=== PATIENT | female | born 1980 | race Caucasian/White ===

== ENCOUNTER 2018-03-12 11:57 | Emergency (ER) | payer MEDICAID, OTHER ==
[2018-03-12 12:28] VITALS: BP 127/89
--- NOTE | 2018-03-12 12:38 | UC ---
UC General HPI - HPI Summary HPI Summary: 10 day hx worsening sinus congestion and pain with bloody purulent drainage. head congestion causing ear pain and post nasal drip causing cough. failing otc tx. subjective fever. - History of Current Complaint Chief Complaint: UCRespiratory Stated Complaint: SINUS COMPLAINT/COUGH Time Seen by Provider: 03/12/18 12:18 Hx Obtained From: Patient Hx Last Menstrual Period: 03/07/18 Onset/Duration: Gradual Onset Timing: Constant Pain Intensity: 0 Associated Signs & Symptoms: Positive: Cough, Fever. Negative: Chest Pain, SOB - Allergy/Home Medications Allergies/Adverse Reactions: Allergies Allergy/AdvReac Type Severity Reaction Status Date / Time diphenhydramine Allergy Severe joint Verified 03/12/18 12:14 [From Benadryl] pain, swelling , difficulty breathing sulfamethoxazole Allergy Unknown Joint Pain Verified 03/12/18 12:14 [From Bactrim] trimethoprim [From Bactrim] Allergy Unknown Joint Pain Verified 03/12/18 12:14 Home Medications: Home Medications Acetaminophen TAB* [Tylenol TAB*] 650 mg PO Q4H PRN 03/12/18 [History Confirmed 03/12/18] Metoprolol Tartrate TAB* [Lopressor TAB*] 50 mg PO BID 03/12/18 [History Confirmed 03/12/18] guaiFENesin ER TAB [Mucinex*] 1,200 mg PO BID PRN 03/12/18 [History Confirmed ] PMH/Surg Hx/FS Hx/Imm Hx Cardiovascular History: Hypertension - Surgical History Surgical History: Yes Surgery Procedure, Year, and Place: Back surgery 2 years ago. Tubal - 2000 - Family History Known Family History: Positive: Non-Contributory - Social History Occupation: Employed Full-time Alcohol Use: Weekly Substance Use Type: None Smoking Status (MU): Current Some Day Smoker Type: Cigarettes Amount Used/How Often: ONE TWICE A MONTH - Immunization History Vaccination Up to Date: Yes Review of Systems All Other Systems Reviewed And Are Negative: Yes Constitutional: Positive: Fever, Chills Skin: Positive: Negative Eyes: Positive: Negative ENT: Positive: Sore Throat, Ear Ache, Nasal Discharge, Sinus Congestion, Sinus Pain/Tenderness Respiratory: Positive: Cough Cardiovascular: Positive: Negative Gastrointestinal: Positive: Negative Genitourinary: Positive: Negative Motor: Positive: Negative Neurovascular: Positive: Negative Musculoskeletal: Positive: Negative Neurological: Positive: Negative Psychological: Positive: Negative Physical Exam Triage Information Reviewed: Yes Appearance: Well-Appearing Vital Signs: Initial Vital Signs Temp 97.9 F 03/12/18 12:17 Pulse 72 03/12/18 12:17 Resp 17 03/12/18 12:17 BP 127/89 03/12/18 12:17 Pulse Ox 98 03/12/18 12:17 Vital Signs Reviewed: Yes Eyes: Positive: Conjunctiva Clear ENT: Positive: Pharynx normal, Nasal congestion, TMs normal, Sinus tenderness. Negative: Nasal drainage Neck: Positive: Supple, Nontender, No Lymphadenopathy Respiratory: Positive: Lungs clear, Normal breath sounds, No respiratory distress, Other: - NPC Cardiovascular: Positive: RRR, No Murmur Abdomen Description: Positive: Nontender, No Organomegaly, Soft Bowel Sounds: Positive: Present Musculoskeletal: Positive: ROM Intact Neurological: Positive: Alert Psychological: Positive: Age Appropriate Behavior Skin Exam: Normal Course/Dx - Diagnoses Provider Diagnosis: Sinusitis Discharge - Sign-Out/Discharge Documenting (check all that apply): Patient Departure All imaging exams completed and their final reports reviewed: No Studies - Discharge Plan Condition: Stable Disposition: HOME Prescriptions: Amoxicillin/Clavulanate TAB* [Augmentin TAB 875*] 875 mg PO BID 10 Days #20 tab Patient Education Materials: Sinusitis (ED) Forms: *Work Release Referrals: Dionne Galo NP [Primary Care Provider] - 7 Days - Billing Disposition and Condition Condition: STABLE Disposition: Home - Attestation Statements Provider Attestation: I was available for consult. This patient was seen by the CHARISSA. The patient was not presented to, seen by, or examined by me. -Wilda
== END 2018-03-12 12:57 | disposition home or self-care (01) ==
LOC: UCCORT 11:57
DX: J32.9 Chronic sinusitis, unspecified (principal); Z88.1 Allergy status to other antibiotic agents; Z88.8 Allergy status to other drugs, medicaments and biological substances; I10 Essential (primary) hypertension; F17.210 Nicotine dependence, cigarettes, uncomplicated
CPT/HCPCS: 99202; G0463

== ENCOUNTER 2018-05-08 14:45 | Emergency (ER) | payer OTHER ==
[2018-05-08 15:26] VITALS: BP 141/89
--- NOTE | 2018-05-08 15:29 | UC ---
Respiratory Complaint HPI - HPI Summary HPI Summary: 4 days of cough, sore throat, ear pain. flu shot: - History of Current Complaint Chief Complaint: UCRespiratory Stated Complaint: UPPER RESPIRATORY Time Seen by Provider: 05/08/18 15:28 Hx Obtained From: Patient Hx Last Menstrual Period: 04/22/18 Pain Intensity: 0 Pain Scale Used: 0-10 Numeric Character: Cough: Productive Aggravating Factors: Nothing Alleviating Factors: Nothing Associated Signs And Symptoms: Negative: Dyspnea, Fever, Chills - Allergies/Home Medications Allergies/Adverse Reactions: Allergies Allergy/AdvReac Type Severity Reaction Status Date / Time diphenhydramine Allergy Severe joint Verified 05/08/18 15:17 [From Benadryl] pain, swelling , difficulty breathing sulfamethoxazole Allergy Unknown Joint Pain Verified 05/08/18 15:17 [From Bactrim] trimethoprim [From Bactrim] Allergy Unknown Joint Pain Verified 05/08/18 15:17 PMH/Surg Hx/FS Hx/Imm Hx Previously Healthy: Yes - Surgical History Surgical History: Yes Surgery Procedure, Year, and Place: Back surgery 2 years ago. Tubal - 2000 - Family History Known Family History: Positive: Non-Contributory - Social History Alcohol Use: Weekly Substance Use Type: None Smoking Status (MU): Current Some Day Smoker Type: Cigarettes Amount Used/How Often: ONE TWICE A MONTH - Immunization History Vaccination Up to Date: Yes Review of Systems All Other Systems Reviewed And Are Negative: Yes Constitutional: Positive: Fever, Chills, Fatigue Skin: Negative: Rash ENT: Positive: Sinus Congestion, Other - loss of voice. Negative: Sore Throat, Ear Ache Respiratory: Positive: Cough Cardiovascular: Positive: Negative Gastrointestinal: Negative: Vomiting, Diarrhea, Nausea Neurological: Negative: Headache, Weakness Physical Exam Triage Information Reviewed: Yes Appearance: Well-Appearing Vital Signs: Initial Vital Signs Temp 98.1 F 05/08/18 15:19 Pulse 71 05/08/18 15:19 Resp 19 05/08/18 15:19 BP 141/89 05/08/18 15:19 Pulse Ox 100 05/08/18 15:19 Vital Signs Reviewed: Yes Eyes: Positive: Conjunctiva Clear ENT: Positive: Pharynx normal, TMs normal, Other - loss of voice Neck: Positive: Supple, No Lymphadenopathy Respiratory Exam: Normal Cardiovascular Exam: Normal Neurological: Positive: Alert Skin: Negative: Rashes UC Diagnostic Evaluation - Laboratory O2 Sat by Pulse Oximetry: 100 Respiratory Course/Dx - Course Course Of Treatment: 4 day hx of cough, post nasal drip and laryngitis. exam remarkable for laryngitis but otherwise unremarkable, good lungs. vitals good. trial of albuterol to help w/ dry cough and opening up bronchioles. no resp distress. pt vaccinated against flu. - Differential Dx/Diagnosis Differential Diagnosis/HQI/PQRI: Asthma, Bronchitis, Lower Resp Infection, Sinusitis Provider Diagnosis: URI (upper respiratory infection), Laryngitis Discharge - Sign-Out/Discharge Documenting (check all that apply): Patient Departure All imaging exams completed and their final reports reviewed: No Studies - Discharge Plan Condition: Good Disposition: HOME Prescriptions: Albuterol HFA INHALER* [Ventolin HFA Inhaler*] 2 puff INH Q4H PRN #1 mdi PRN Reason: Cough Patient Education Materials: Laryngitis (ED) Forms: *Work Release Referrals: Dionne Galo NP [Primary Care Provider] - Additional Instructions: if no improvement please follow up with pcp - Billing Disposition and Condition Condition: GOOD Disposition: Home
== END 2018-05-08 15:52 | disposition home or self-care (01) ==
LOC: UCCORT 14:45
DX: J04.0 Acute laryngitis (principal); F17.210 Nicotine dependence, cigarettes, uncomplicated; Z88.8 Allergy status to other drugs, medicaments and biological substances; Z88.2 Allergy status to sulfonamides
CPT/HCPCS: 99212; G0463

== ENCOUNTER 2019-05-27 09:18 | Emergency (ER) | payer OTHER ==
--- OUTSIDE RECORDS SUMMARY | 2019-05-27 09:27 | XMS REPORT | Continuity of Care Document ---
:1980 External Reference #:[id number] Demographics Address [address] [facility] [place] [address] Home Phone [phone] Mobile Phone [phone] Email Address Preferred Language en Marital Status Declined to Specify/Unknown Christian Affiliation Unknown Race White Ethnic Group Declined to Specify/Unknown Author Name Jose White PA-C Address [address] [place] [address] Care Team Providers Name Role Phone Meredith Isaac RPA-C Care Team Information Trains Dispatcher Supervisor [phone] Rayna Conrad, AGRICULTURAL EQUIPMENT MECHANIC - Family Care Team Information Trains Dispatcher Supervisor [phone] Problems Active Problems Provider Date Headache Jose White PA-C Onset: 01/14/2019 Subarachnoid hemorrhage Jose White PA-C Onset: 01/14/2019 Social History Type Date Description Comments Sex Unknown ETOH Use Consumes liquor 2 times per day Tobacco Use Start: Unknown End: Patient is a former former socially Unknown smoker smoker Recreational Drug Use Regularly uses Marijuana Smoking Status Reviewed: 04/22/19 Patient is a former former socially smoker smoker Allergies, Adverse Reactions, Alerts Description No Known Drug Allergies Medications Active Medications SIG Qnty Indications Ordering Provider Date Topamax 1 tab AT night 60tabs Jose White, 05/25/2019 25mg Tablets for 1 week then 2 PA-C tabs AT night Gabapentin 2 caps by mouth 180caps Jose White, 03/30/2019 300mg up to three times PA-C Capsules daily Fioricet 1 cap by mouth Unknown 50-300-40mg twice a day Capsules needed for headache Xanax take 1 tablet by Unknown 0.25mg Tablets oral route every 6 hours needed Fluoxetine HCL 1 by mouth every Unknown 40mg day Capsules Aspir-Low 1 by mouth every Unknown 81mg day Tablets DR Melatonin ER take 1 tablet AT Unknown 10mg bedtime Tablets ER Metoprolol Succinate Take One Tablet Unknown ER By Mouth Every 50mg Tablets ER Day 24HR History Medications Gabapentin 1 cap by mouth AT 90caps R51 Jose White, 01/14/2019 - 300mg night for 1 week, FABIO 03/30/2019 Capsules increase by 300 mg a week until 300 mg tid Immunizations Description No Information Available Vital Signs Date Vital Result Comment 05/25/2019 2:54pm BP Systolic 167 mmHg BP Diastolic 88 mmHg Heart Rate 57 /min Body Temperature 97.8 F Body Temperature 36.6 C Respiratory Rate 16 /min 05/06/2019 3:12pm Height 65 inches 5'5" Weight 169.00 lb BMI (Body Mass Index) 28.1 kg/m2 BP Systolic 133 mmHg BP Diastolic 84 mmHg Heart Rate 57 /min Body Temperature 97.5 F Body Temperature 36.4 C Results Test Acquired Date Facility Test Result H/L Range Note BMP-Female 04/22/2019 [facility] Glucose 89 mg/ dL 74-106 [address] [place], [place] [id number] [phone] BUN 12 mg/dL 6-20 Creatinine 0.7 mg/dL 0.5-1.3 Sodium 137 mmol/L 136-145 Potassium 4.4 mmol/L 3.5-5.3 Chloride 103 mmol/L 98-107 Co2 25 mEq/L 20-31 Anion Gap 9 mmol/L 7-16 eGFR-female 92 mL/m/1.73m - eGFR-Aa female 112 mL/m/1.73m - 2 Calcium 9.7 mg/dL 8.9-10.5 Cbcadp 04/22/2019 [facility] WBC. 5.61 x10E3/uL 4.2-12.0 [address] [place] [address] [phone] RBC 4.03 x10E6/uL 3.9-5.4 HGB 11.7 g/dL Low 12.0-16.0 HCT 37.9 % 36-47 MCV 94.1 fL 80-98 MCH 29.1 pg 27-33 MCHC 30.9 g/dL Low 32-36 RDW 14.0 % 11.2-15.2 PLT 369 x10E3/uL 135-420 MPV 8.2 fL 7.0-12.3 % Mary 59.8 % 41.0-80.0 %Lym 31.3 % 10.0-45.2 %[place] 7.1 % 2.0-13.0 %Eos 1.2 % 0.0-8.0 %Baso 0.5 % 0.0-3.0 Neut 3.4 x10E3/uL 2.0-8.1 Lymp 1.8 x10E3/uL 0.6-3.1 [place] 0.4 x10E3/uL 0.0-1.0 Eos 0.1 x10E3/uL 0.0-0.6 Baso 0.0 x10E3/uL 0.0-0.2 PT-Inr 04/22/2019 [facility] PT 11.4 Sec 10.6 -13.0 [address] [place] [address] [phone] Inr 1.0 - 3 Laboratory test 04/22/2019 [facility] PTT 26.2 Sec 25.6-35.6 finding [address] [place] [address] [phone] Scattergram ok - Venipuncture DONE - Xray 02/19/2019 [facility] MRI Brain W/O Contrast [id number] [address] [place] [address] [phone] 1 [place] Diabetes [employer] (ADA) Recommended Range is 65-99 mg/dL 2 Normal Kidney Function or Mild Disease GFR >59 mL/min/1.73m2 Chronic Kidney Disease GFR 15-59 mL/min/1.73m2 Renal Failure GFR <15 mL/min/1.73m2 3 Transmitted 04.22.2019 5:00pm bab * INR Interpretation : . Recommended Theraputic Range: 2.0 - 3.0 . For treatment/prophylaxis . of venous thrombosis, . prevention of embolism. . . Procedures Date Code Description Status 04/28/2019 25869 Moderate Sedation Services; Same Phys Intl 15 Mins; PT >= Completed 5 Years 04/28/2019 96989 3D Rend Intrepretation Req Image Postprocessing Completed Independent Work 04/28/2019 12923 Angiography Internal Corotid Of The Ipsil Intrac Completed Circulation 04/28/2019 15949 Cath Placement Angiography Of The Ipsilateral Intracarnial Completed 03/25/2019 23025 EEG Recording Awake & Drowsy Completed 12/17/2018 26572 Catheter Placement Arterial System Init 3RD Ord Completed Thoracic/Brachioc 12/17/2018 93804 Transcatheter Permanent Occlusion/Embolization Completed Percutaneous CONSULTING SALES EXECUTIVE 12/17/2018 86330 Endovascular Intracranial Prolonged Admin Of Pharmacologic Completed Agents 12/17/2018 21263 Endovascular Intracranial Prolonged Admin Of Pharmacologic Completed Agents 12/17/2018 75873 Transcatheter Therapy Embolization Any Method Completed 12/17/2018 81219 Moderate Sedation Services; Same Phys Intl 15 Mins; PT >= Completed 5 Years 12/17/2018 12783 Moderate Sedation Services; Same Phys Intl 15 Mins; PT >= Completed 5 Years 12/02/2018 82864 Moderate Sedation Services; Same Phys Intl 15 Mins; PT >= Completed 5 Years 12/02/2018 59073 Angiogram For Transcatheter Therapy Embolization Or Completed Infusion 12/02/2018 46946 Angiogram For Transcatheter Therapy Embolization Or Completed Infusion 12/02/2018 69767 Transcatheter Therapy Embolization Any Method Completed 12/02/2018 56897 Transcatheter Permanent Occlusion/Embolization Completed Percutaneous CONSULTING SALES EXECUTIVE 12/02/2018 45780 Catheter Placement Arterial System Init 3RD Ord Completed Thoracic/Brachioc 12/01/2018 34221 Twist Drill Hole For Implanting Ventricular Cath/Pressure Completed Rec Dev Medical Devices Description No Information Available Encounters Type Date Location Provider Dx Diagnosis Office Visit 05/06/2019 [facility] Neurosurgery Jim Gifford MD I60.7 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 R51 Headache Z95.828 Presence of other vascular implants and grafts Office Visit 04/22/2019 2:40p [facility] Neurosurgery Jim Gifford I60.[place] Nontraumatic MD subarachnoid hemorrhage from unsp intracran art R51 Headache Z95.828 Presence of other vascular implants and grafts Office Visit 02/19/2019 2:40p [facility] Neurology Jose White I60.7 Nontraumatic PA-C subarachnoid hemorrhage from unsp intracran art R47.01 Aphasia R51 Headache Office Visit 01/21/2019 3:00p [facility] Neurosurgery Jim Giffodr I60Angel Nontraumatic MD subarachnoid hemorrhage from unsp intracran art R51 Headache Z95.828 Presence of other vascular implants and grafts Office Visit 01/14/2019 10:20a [facility] Neurology Jose White, JACQUIE-C R51 Headache I60.7 Nontraumatic subarachnoid hemorrhage from unsp intracran art Office Visit 12/24/2018 6:04p [facility] Neurosurgery Jim Gifford, I60.7 Nontraumatic MD subarachnoid hemorrhage from unsp intracran art Z95.828 Presence of other vascular implants and grafts Office Visit 12/23/2018 6:04p [facility] Neurosurgery Jim Gifford, I60.7 Nontraumatic MD subarachnoid hemorrhage from unsp intracran art Z95.828 Presence of other vascular implants and grafts Office Visit 12/22/2018 6:04p [facility] Neurosurgery Jim Gifford I60.7 Nontraumatic MD subarachnoid hemorrhage from unsp intracran art I67.848 Other cerebrovascular vasospasm and vasoconstriction Office Visit 12/21/2018 6:04p [facility] Neurosurgery Reilly Kilgore, Z48.812 Encntr for MD surgical aftcr following surgery on the circ sys I60.7 Nontraumatic subarachnoid hemorrhage from unsp intracran art I67.848 Other cerebrovascular vasospasm and vasoconstriction Office Visit 12/20/2018 6:04p [facility] Neurosurgery Guy Jimenes, Z48.812 Encntr for PA-C surgical aftcr following surgery on the circ sys R00.1 Bradycardia, unspecified I67.848 Other cerebrovascular vasospasm and vasoconstriction I60.7 Nontraumatic subarachnoid hemorrhage from unsp intracran art Office Visit 12/19/2018 6:04p [facility] Neurosurgery Minnie Hathaway Z48.812 Encntr for PA surgical aftcr following surgery on the circ sys R53.1 Weakness R00.1 Bradycardia, unspecified R40.0 Somnolence Office Visit 12/18/2018 6:04p [facility] Neurosurgery Guy Jimenes, Z48.812 Encntr for PA-C surgical aftcr following surgery on the circ sys I60.7 Nontraumatic subarachnoid hemorrhage from unsp intracran art I67.848 Other cerebrovascular vasospasm and vasoconstriction Office Visit 12/17/2018 [facility] Neurosurgery Reilly Kilgore I60.7 Nontraumatic 6:04p MD subarachnoid hemorrhage from unsp intracran art T82.528A Displacmnt of cardiac and vascular devices and implnt, init I67.848 Other cerebrovascular vasospasm and vasoconstriction Office Visit 12/16/2018 6:04p [facility] Neurosurgery Jim Gifford I60.7 Nontraumatic MD subarachnoid hemorrhage from unsp intracran art I67.848 Other cerebrovascular vasospasm and vasoconstriction Office Visit 12/15/2018 6:02p [facility] Neurosurgery Jim Gifford I60.7 Nontraumatic MD subarachnoid hemorrhage from unsp intracran art I67.848 Other cerebrovascular vasospasm and vasoconstriction 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 Office Visit 12/14/2018 [facility] Neurosurgery eRilly Kilgore I60.7 Nontraumatic 6:02p MD subarachnoid hemorrhage from unsp intracran art 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 Office Visit 12/13/2018 [facility] Neurosurgery Reilly Kilgore I60.7 Nontraumatic 6:02p MD subarachnoid hemorrhage from unsp intracran art I67.848 Other cerebrovascular vasospasm and vasoconstriction 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 Z95.828 Presence of other vascular implants and grafts Office Visit 12/12/2018 6:02p [facility] Neurosurgery Jim Gifford I60.7 Nontraumatic MD subarachnoid hemorrhage from unsp intracran art I67.848 Other cerebrovascular vasospasm and vasoconstriction 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 Z95.828 Presence of other vascular implants and grafts Office Visit 12/11/2018 6:03p [facility] Neurosurgery Jim Gifford MD R35.8 Other polyuria I60.7 Nontraumatic subarachnoid hemorrhage from unsp intracran art 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 Z95.828 Presence of other vascular implants and grafts Office Visit 12/10/2018 6:03p [facility] Neurosurgery Jim Gifford I60.7 Nontraumatic MD subarachnoid hemorrhage from unsp intracran art R35.8 Other polyuria R51 Headache 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 Office Visit 12/09/2018 6:02p [facility] Neurosurgery Jim Gifford I60.7 Nontraumatic MD subarachnoid hemorrhage from unsp intracran art I67.848 Other cerebrovascular vasospasm and vasoconstriction 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 Z95.828 Presence of other vascular implants and grafts Office Visit 12/08/2018 6:02p [facility] Neurosurgery Hebert Reddy, I60.7 Nontraumatic RPA-C subarachnoid hemorrhage from unsp intracran art 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 Office Visit 12/08/2018 6:02p [facility] Neurosurgery Guy Lebrandan, I60.7 Nontraumatic PA-C subarachnoid hemorrhage from unsp intracran art 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 Office Visit 12/07/2018 6:04p [facility] Neurosurgery JACQUIE Bautista I60.7 Nontraumatic subarachnoid hemorrhage from unsp intracran art G91.9 Hydrocephalus, unspecified 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 Z95.828 Presence of other vascular implants and grafts Office Visit 12/06/2018 6:02p [facility] Neurosurgery Hebert Reddy, I60.7 Nontraumatic RPA-C subarachnoid hemorrhage from unsp intracran art G91.9 Hydrocephalus, unspecified 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 Z95.828 Presence of other vascular implants and grafts Office Visit 12/05/2018 6:02p [facility] Neurosurgery Sheyla Daniel, I60.7 Nontraumatic PA subarachnoid hemorrhage from unsp intracran art G91.9 Hydrocephalus, unspecified 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 Z95.828 Presence of other vascular implants and grafts Office Visit 12/04/2018 6:02p [facility] Neurosurgery Hebert Reddy, I60.7 Nontraumatic RPA-C subarachnoid hemorrhage from unsp intracran art G91.9 Hydrocephalus, unspecified 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 Z95.828 Presence of other vascular implants and grafts Office Visit 12/03/2018 6:02p [facility] Neurosurgery Jim Gifford, Z48.812 Encntr for MD surgical aftcr following surgery on the circ sys I60.7 Nontraumatic subarachnoid hemorrhage from unsp intracran art G91.9 Hydrocephalus, unspecified Office Visit 12/02/2018 6:02p [facility] Neurosurgery Jim Gifford I60.7 Nontraumatic MD subarachnoid hemorrhage from unsp intracran art G91.9 Hydrocephalus, unspecified Office Visit 12/01/2018 6:03p [facility] Neurosurgery Jim Balta, I60.7 Nontraumatic MD subarachnoid hemorrhage from unsp intracran art G91.9 Hydrocephalus, unspecified I10 Essential (primary) hypertension F17.210 Nicotine dependence, cigarettes, uncomplicated Assessments Date Code Description Provider 05/25/2019 I60.7 Nontraumatic subarachnoid hemorrhage from Jose White, PA-C unspecified intracranial artery 05/25/2019 R51 Headache Jose White, PA-C 05/06/2019 I60.7 Nontraumatic subarachnoid hemorrhage from Jim Gifford MD unspecified intracranial artery 05/06/2019 R51 Headache Jim Gifford MD 05/06/2019 Z95.828 Presence of other vascular implants and Jim Gifford MD grafts 04/28/2019 I67.1 Cerebral aneurysm, nonruptured Jim Gifford MD 04/28/2019 Z95.828 Presence of other vascular implants and Jim Gifford MD grafts 04/22/2019 I60.7 Nontraumatic subarachnoid hemorrhage from Jim Gifford MD unspecified intracranial artery 04/22/2019 R51 Headache Jim Gifford MD 04/22/2019 Z95.828 Presence of other vascular implants and Jim Gifford MD grafts 04/22/2019 I60.7 Nontraumatic subarachnoid hemorrhage from [facility] unsp intracran art 04/22/2019 I60.7 Nontraumatic subarachnoid hemorrhage from [facility] unsp intracran art 03/25/2019 R47.01 Aphasia Tanner Osborne MD 03/25/2019 R51 Headache Tanner Osborne MD 02/19/2019 I60.7 Nontraumatic subarachnoid hemorrhage from JACQUIE Serrano-C unspecified intracranial artery 02/19/2019 R47.01 Aphasia Jose White PA-C 02/19/2019 R51 Headache Jose White PA-C 01/21/2019 I60.7 Nontraumatic subarachnoid hemorrhage from Jim Gifford MD unspecified intracranial artery 01/21/2019 R51 Headache Jim Gifford MD 01/21/2019 Z95.828 Presence of other vascular implants and Jim Gifford MD grafts 01/14/2019 R51 Headache Jose White, JACQUIE-C 01/14/2019 I60.7 Nontraumatic subarachnoid hemorrhage from Jose White PA-C unspecified intracranial artery 12/24/2018 I60.7 Nontraumatic subarachnoid hemorrhage from Jim Gifford MD unsp intracran art 12/24/2018 Z95.828 Presence of other vascular implants and Jim Gifford MD grafts 12/23/2018 I60.7 Nontraumatic subarachnoid hemorrhage from Jim Gifford MD unsp intracran art 12/23/2018 Z95.828 Presence of other vascular implants and Jim Gifford MD grafts 12/22/2018 I60.7 Nontraumatic subarachnoid hemorrhage from Jim Gifford MD unsp intracran art 12/22/2018 I67.848 Other cerebrovascular vasospasm and Jim Gifford MD vasoconstriction 12/21/2018 Z48.812 Encntr for surgical aftcr following surgery Reilly Kilgore MD on the circ sys 12/21/2018 I60.7 Nontraumatic subarachnoid hemorrhage from Reilly Kilgore MD unsp intracran art 12/21/2018 I67.848 Other cerebrovascular vasospasm and Reilly Kilgore MD vasoconstriction 12/20/2018 Z48.812 Encntr for surgical aftcr following surgery Guy Jimenes PA-C on the circ sys 12/20/2018 R00.1 Bradycardia, unspecified Guy Jimenes PA-C 12/20/2018 I67.848 Other cerebrovascular vasospasm and Guy Jimenes PA-C vasoconstriction 12/20/2018 I60.7 Nontraumatic subarachnoid hemorrhage from JACQUIE Rivera unsp intracran art 12/19/2018 Z48.812 Encntr for surgical aftcr following surgery JACQUIE Potts on the circ sys 12/19/2018 R53.1 Weakness JACQUIE Potts 12/19/2018 R00.1 Bradycardia, unspecified JACQUIE Potts 12/19/2018 R40.0 Somnolence JACQUIE Potts 12/18/2018 Z48.812 Encntr for surgical aftcr following surgery Guy Jimenes PA-C on the circ sys 12/18/2018 I60.7 Nontraumatic subarachnoid hemorrhage from JACQUIE Rivera unsp intracran art 12/18/2018 I67.848 Other cerebrovascular vasospasm and Guy Jimenes PA-C vasoconstriction 12/17/2018 I60.7 Nontraumatic subarachnoid hemorrhage from Reilly Kilgore MD unsp intracran art 12/17/2018 T82.528A Displacmnt of cardiac and vascular devices Reilly Kilgore MD and implnt, init 12/17/2018 I67.848 Other cerebrovascular vasospasm and Reilly Kilgore MD vasoconstriction 12/17/2018 I60.7 Nontraumatic subarachnoid hemorrhage from Jim Gifford MD unspecified intracranial artery 12/17/2018 T82.528A Displacement of other cardiac and vascular Jim Gifford MD devices and implants, initial encounter 12/17/2018 I67.848 Other cerebrovascular vasospasm and Jim Gifford MD vasoconstriction 12/16/2018 I60.7 Nontraumatic subarachnoid hemorrhage from Jim Gifford MD unsp intracran art 12/16/2018 I67.848 Other cerebrovascular vasospasm and Jim Gifford MD vasoconstriction 12/15/2018 I60.7 Nontraumatic subarachnoid hemorrhage from Jim Gifford MD unsp intracran art 12/15/2018 I67.848 Other cerebrovascular vasospasm and Jim Gifford MD vasoconstriction 12/15/2018 Z98.2 Presence of cerebrospinal fluid drainage Jim Gifford MD device 12/14/2018 I60.7 Nontraumatic subarachnoid hemorrhage from Reilly Kilgore MD unsp intracran art 12/14/2018 Z98.2 Presence of cerebrospinal fluid drainage Reilly Kilgore MD device 12/13/2018 I60.7 Nontraumatic subarachnoid hemorrhage from Reilly Kilgore MD unsp intracran art 12/13/2018 I67.848 Other cerebrovascular vasospasm and Reilly Kilgore MD vasoconstriction 12/13/2018 Z98.2 Presence of cerebrospinal fluid drainage Reilly Kilgore MD device 12/13/2018 Z95.828 Presence of other vascular implants and Reilly Kilgore MD grafts 12/12/2018 I60.7 Nontraumatic subarachnoid hemorrhage from Jim Gifford MD unsp intracran art 12/12/2018 I67.848 Other cerebrovascular vasospasm and Jim Gifford MD vasoconstriction 12/12/2018 Z98.2 Presence of cerebrospinal fluid drainage Jim Gifford MD device 12/12/2018 Z95.828 Presence of other vascular implants and Jim Gifford MD grafts 12/11/2018 R35.8 Other polyuria Jim Gifford MD 12/11/2018 I60.7 Nontraumatic subarachnoid hemorrhage from Jim Gifford MD unsp intracran art 12/11/2018 Z98.2 Presence of cerebrospinal fluid drainage Jim Gifford MD device 12/11/2018 Z95.828 Presence of other vascular implants and Jim Gifford MD grafts 12/10/2018 I60.7 Nontraumatic subarachnoid hemorrhage from Jim Gifford MD unsp intracran art 12/10/2018 R35.8 Other polyuria Jim Gifford MD 12/10/2018 R51 Headache Jim Gifford MD 12/10/2018 Z98.2 Presence of cerebrospinal fluid drainage Jim Gifford MD device 12/09/2018 I60.7 Nontraumatic subarachnoid hemorrhage from Jim Gifford MD unsp intracran art 12/09/2018 I67.848 Other cerebrovascular vasospasm and Jim Gifford MD vasoconstriction 12/09/2018 Z98.2 Presence of cerebrospinal fluid drainage Jim Gifford MD device 12/09/2018 Z95.828 Presence of other vascular implants and Jim Gifford MD grafts 12/08/2018 I60.7 Nontraumatic subarachnoid hemorrhage from JACQUIE Rivera unsp intracran art 12/08/2018 Z98.2 Presence of cerebrospinal fluid drainage EMILY Rivera C device 12/08/2018 I60.7 Nontraumatic subarachnoid hemorrhage from HARJEET Fry unspecified intracranial artery 12/08/2018 Z98.2 Presence of cerebrospinal fluid drainage MOON Fry device 12/07/2018 I60.7 Nontraumatic subarachnoid hemorrhage from JACQUIE Bautista unsp intracran art 12/07/2018 G91.9 Hydrocephalus, unspecified JACQUIE Bautista 12/07/2018 Z98.2 Presence of cerebrospinal fluid drainage JACQUIE Bautista device 12/07/2018 Z95.828 Presence of other vascular implants and Franck Moore, PA grafts 12/06/2018 I60.7 Nontraumatic subarachnoid hemorrhage from Hebert Reddy, RPA-C unsp intracran art 12/06/2018 G91.9 Hydrocephalus, unspecified Hebert Reddy, RPA-C 12/06/2018 Z98.2 Presence of cerebrospinal fluid drainage Hebert Russellyer, RPA -C device 12/06/2018 Z95.828 Presence of other vascular implants and Hebert Russellyer, RPA-C grafts 12/05/2018 I60.7 Nontraumatic subarachnoid hemorrhage from Sheyla Sanchez PA unsp intracran art 12/05/2018 G91.9 Hydrocephalus, unspecified Sheyla Sanchez, PA 12/05/2018 Z98.2 Presence of cerebrospinal fluid drainage Sheyla Sanchez, PA device 12/05/2018 Z95.828 Presence of other vascular implants and Sheyla Sanchez, PA grafts 12/04/2018 I60.7 Nontraumatic subarachnoid hemorrhage from Hebert Russellyer, RPA-C unsp intracran art 12/04/2018 G91.9 Hydrocephalus, unspecified Hebert Reddy, RPA-C 12/04/2018 Z98.2 Presence of cerebrospinal fluid drainage Hebert Russellyer, RPA -C device 12/04/2018 Z95.828 Presence of other vascular implants and Hebert Russellyer, RPA-C grafts 12/03/2018 Z48.812 Encntr for surgical aftcr following surgery Jim Gifford MD on the circ sys 12/03/2018 I60.7 Nontraumatic subarachnoid hemorrhage from Jim Gifford MD unsp intracran art 12/03/2018 G91.9 Hydrocephalus, unspecified Jim Gifford MD 12/02/2018 I60.7 Nontraumatic subarachnoid hemorrhage from Jim Gifford MD unsp intracran art 12/02/2018 G91.9 Hydrocephalus, unspecified Jim Gifford MD 12/01/2018 I60.7 Nontraumatic subarachnoid hemorrhage from JACQUIE Sanders unsp intracran art 12/01/2018 G91.9 Hydrocephalus, unspecified JACQUIE Sanders 12/01/2018 I10 Essential (primary) hypertension JACQUIE Sanders 12/01/2018 F17.210 Nicotine dependence, cigarettes, JACQUIE Sanders uncomplicated 12/01/2018 I60.7 Nontraumatic subarachnoid hemorrhage from Jim Gifford MD unspecified intracranial artery 12/01/2018 G91.9 Hydrocephalus, unspecified Jim Gifford MD 12/01/2018 I10 Essential (primary) hypertension Jim Gifford MD 12/01/2018 F17.210 Nicotine dependence, cigarettes, Jim Gifford MD uncomplicated Plan of Treatment Future Appointment(s):09/23/2019 3:00 pm - JACQUIE Serrano-C at [facility] Jocwensxh28/17/2020 - JACQUIE Serrano-CI60.7 Nontraumatic subarachnoid hemorrhage from unspecified intracranial [id number] Headache Functional Status Description No Information Available Mental Status Description No Information Available Referrals Refer to Reason for Referral Status Appt Date Jose White PA headache clinic Closed 01/14/2019 [facility] [address] [place] [address] [phone]
--- OUTSIDE RECORDS SUMMARY | 2019-05-27 09:27 | XMS REPORT | Continuity of Care Document ---
:1980 External Reference #:[id number] Author Name Jim Gifford MD Address [address] [facility], [address] [place] [address] Care Team Providers Name Role Phone Meredith Isaac RPA-C Care Team Information Grid Trimmer [phone] Rayna Conrad, [employer]ER - Family Care Team Information Grid Trimmer Problems Active Problems Provider Date Headache Jose [...] Medications SIG Qnty Indications Ordering Provider Date Gabapentin 2 caps by mouth 180caps Jose [...] mouth every Unknown 81mg day Tablets DR Plavix 1 by mouth every 30tabs Jim Gifford MD 75mg Tablets day Melatonin ER take 1 tablet AT Unknown [...] Available Vital Signs Date Vital Result Comment 04/22/2019 2:20pm Height 65 inches 5'5" Weight 172.00 lb BMI (Body Mass Index) 28.6 kg/m2 BP Systolic 119 mmHg BP Diastolic 77 mmHg Heart Rate 77 /min 02/19/2019 2:36pm BP Systolic 136 mmHg BP Diastolic 77 mmHg Heart Rate 66 /min Body Temperature 97.8 F Body Temperature 36.6 C Respiratory Rate 16 /min Results Test Acquired Date Facility Test Result H/L Range Note Xray 02/19/2019 [facility] MRI Brain W/O [id number] [address] [place] [id number] [phone] Procedures Date Code Description Status 03/25/2019 47384 EEG Recording Awake & Drowsy Completed 12/17/2018 59412 Moderate Sedation Services; Same Phys Intl 15 Mins; PT >= Completed 5 Years 12/17/2018 82583 Moderate Sedation Services; Same Phys Intl 15 Mins; PT >= Completed 5 Years 12/17/2018 21020 Transcatheter Therapy Embolization Any Method Completed 12/17/2018 70291 Endovascular Intracranial Prolonged Admin Of Pharmacologic Completed Agents 12/17/2018 97540 Endovascular Intracranial Prolonged Admin Of Pharmacologic Completed Agents 12/17/2018 68735 Transcatheter Permanent Occlusion/Embolization Completed Percutaneous PODIATRIC TECHNICIAN 12/17/2018 19150 Catheter Placement Arterial System Init 3RD Ord Completed Thoracic/Brachioc 12/02/2018 94414 Moderate Sedation Services; Same Phys Intl 15 Mins; PT >= Completed 5 Years 12/02/2018 59631 Angiogram For Transcatheter Therapy Embolization Or Completed Infusion 12/02/2018 00472 Angiogram For Transcatheter Therapy Embolization Or Completed Infusion 12/02/2018 37762 Transcatheter Therapy Embolization Any Method Completed 12/02/2018 57714 Transcatheter Permanent Occlusion/Embolization Completed Percutaneous PODIATRIC TECHNICIAN 12/02/2018 09594 Catheter Placement Arterial System Init 3RD Ord Completed Thoracic/Brachioc 12/01/2018 15892 Twist Drill Hole For Implanting Ventricular Cath/Pressure Completed Rec Dev Medical Devices Description No Information Available Encounters Type Date Location Provider Dx Diagnosis Office Visit 04/22/2019 [facility] Neurosurgery Jim Gifford MD I60.7 Nontraumatic 2: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 subarachnoid hemorrhage from unsp intracran art R51 Headache Z95.828 Presence of other vascular implants and grafts Office Visit 02/19/2019 2:40p [facility] Neurology Jose White I60.7 Nontraumatic PA-C subarachnoid hemorrhage from unsp intracran art R47.01 Aphasia R51 Headache Office Visit 01/21/2019 3:00p [facility] Neurosurgery Jim Gifford I60.7 Nontraumatic MD subarachnoid hemorrhage from unsp intracran art R51 Headache Z95.828 Presence of other vascular implants and grafts Office Visit 01/14/2019 10:20a [facility] Neurology Jose White, PA-C R51 Headache I60.7 Nontraumatic subarachnoid hemorrhage from unsp intracran art Office Visit 12/24/2018 6:04p [facility] Neurosurgery Jim Gifford I60.7 Nontraumatic subarachnoid hemorrhage from unsp intracran art Z95.828 Presence of other vascular implants and grafts Office Visit 12/23/2018 6:04p [facility] Neurosurgery Jim Gifford I60.7 Nontraumatic MD subarachnoid hemorrhage from unsp intracran art Z95.828 Presence of other vascular implants and grafts Office Visit 12/22/2018 6:04p [facility] Neurosurgery Jim Gifford I60.7 Nontraumatic MD subarachnoid hemorrhage from unsp intracran art I67.848 Other cerebrovascular vasospasm and vasoconstriction Office Visit 12/21/2018 6:04p [facility] Neurosurgery Reilly Kilgore, Z48.812 Encntr for MD surgical aftcr following surgery on the circ sys I60.7 Nontraumatic subarachnoid hemorrhage from unsp intracran art I67.848 Other cerebrovascular vasospasm and vasoconstriction Office Visit 12/20/2018 6:04p [facility] Neurosurgery Guy Jimenes, Z48.812 Encntr for PA-C surgical aftcr following surgery on the circ sys R00.1 Bradycardia, unspecified I67.848 Other cerebrovascular vasospasm and vasoconstriction I60.7 Nontraumatic subarachnoid hemorrhage from unsp intracran art Office Visit 12/19/2018 6:04p [facility] Neurosurgery Minnie Hatahway, Z48.812 Encntr for PA surgical aftcr following surgery on the circ sys R53.1 Weakness R00.1 Bradycardia, unspecified R40.0 Somnolence Office Visit 12/18/2018 6:04p [facility] Neurosurgery Guy Jimenes, Z48.812 Encntr for PA-C surgical aftcr following surgery on the circ sys I60.7 Nontraumatic subarachnoid hemorrhage from unsp intracran art I67.848 Other cerebrovascular vasospasm and vasoconstriction Office Visit 12/17/2018 [facility] Neurosurgery Reilyl Jame, I60.7 Nontraumatic 6:04p MD subarachnoid hemorrhage from unsp intracran art T82.528A Displacmnt of cardiac and vascular devices and implnt, init I67.848 Other cerebrovascular vasospasm and vasoconstriction Office Visit 12/16/2018 6:04p [facility] Neurosurgery Jim Gifford I60.7 Nontraumatic MD subarachnoid hemorrhage from unsp intracran art I67.848 Other cerebrovascular vasospasm and vasoconstriction Office Visit 12/15/2018 6:02p [facility] Neurosurgery Jim Gifford I60.7 Nontraumatic MD subarachnoid hemorrhage from unsp intracran art I67.848 Other cerebrovascular vasospasm and vasoconstriction 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 Office Visit 12/14/2018 [facility] Neurosurgery Reilly Kilgore, I60.7 Nontraumatic 6:02p MD subarachnoid hemorrhage from unsp intracran art 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 Office Visit 12/13/2018 [facility] Neurosurgery Reilly Kilgore, I60.7 Nontraumatic 6:02p MD subarachnoid hemorrhage from unsp intracran art I67.848 Other cerebrovascular vasospasm and vasoconstriction 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 Z95.828 Presence of other vascular implants and grafts Office Visit 12/12/2018 6:02p [facility] Neurosurgery Jim Gifford I60.7 Nontraumatic MD subarachnoid hemorrhage from unsp intracran art I67.848 Other cerebrovascular vasospasm and vasoconstriction 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 Z95.828 Presence of other vascular implants and grafts Office Visit 12/11/2018 6:03p [facility] Neurosurgery Jim Gifford MD R35.8 Other polyuria I60.7 Nontraumatic subarachnoid hemorrhage from unsp intracran art 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 Z95.828 Presence of other vascular implants and grafts Office Visit 12/10/2018 6:03p [facility] Neurosurgery Jim Gifford I60.7 Nontraumatic MD subarachnoid hemorrhage from unsp intracran art R35.8 Other polyuria R51 Headache 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 Office Visit 12/09/2018 6:02p [facility] Neurosurgery Jim Gifford I60.7 Nontraumatic MD subarachnoid hemorrhage from unsp intracran art I67.848 Other cerebrovascular vasospasm and vasoconstriction 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 Z95.828 Presence of other vascular implants and grafts Office Visit 12/08/2018 6:02p [facility] Neurosurgery Hebert Reddy I60.7 Nontraumatic RPA-C subarachnoid hemorrhage from unsp intracran art 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 Office Visit 12/08/2018 6:02p [facility] Neurosurgery Guy Jimenes I60.7 Nontraumatic PA-C subarachnoid hemorrhage from unsp intracran art 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 Office Visit 12/07/2018 6:04p [facility] Neurosurgery JACQUIE Bautista I60.7 Nontraumatic subarachnoid hemorrhage from unsp intracran art G91.9 Hydrocephalus, unspecified 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 Z95.828 Presence of other vascular implants and grafts Office Visit 12/06/2018 6:02p [facility] Neurosurgery Hebert Reddy, I60.7 Nontraumatic RPA-C subarachnoid hemorrhage from unsp intracran art G91.9 Hydrocephalus, unspecified 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 Z95.828 Presence of other vascular implants and grafts Office Visit 12/05/2018 6:02p [facility] Neurosurgery Sheyla Sanchez I60.7 Nontraumatic PA subarachnoid hemorrhage from unsp intracran art G91.9 Hydrocephalus, unspecified 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 Z95.828 Presence of other vascular implants and grafts Office Visit 12/04/2018 6:02p [facility] Neurosurgery Hebert Reddy, I60.7 Nontraumatic RPA-C subarachnoid hemorrhage from unsp intracran art G91.9 Hydrocephalus, unspecified 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 Z95.828 Presence of other vascular implants and grafts Office Visit 12/03/2018 6:02p [facility] Neurosurgery Jim Gifford, Z48.812 Encntr for MD surgical aftcr following surgery on the circ sys I60.7 Nontraumatic subarachnoid hemorrhage from unsp intracran art G91.9 Hydrocephalus, unspecified Office Visit 12/02/2018 6:02p [facility] Neurosurgery Jim Gifford I60.7 Nontraumatic MD subarachnoid hemorrhage from unsp intracran art G91.9 Hydrocephalus, unspecified Office Visit 12/01/2018 6:03p [facility] Neurosurgery Jim Gifford I60.7 Nontraumatic MD subarachnoid hemorrhage from unsp intracran art G91.9 Hydrocephalus, unspecified I10 Essential (primary) hypertension F17.210 Nicotine dependence, cigarettes, uncomplicated Assessments Date Code Description Provider 04/22/2019 I60.7 Nontraumatic subarachnoid hemorrhage from Jim Gifford MD unspecified intracranial artery 04/22/2019 R51 Headache Jim Gifford MD 04/22/2019 Z95.828 Presence of other vascular implants and Jim Gifford MD grafts 03/25/2019 R47.01 Aphasia Tanner Osborne MD 03/25/2019 R51 Headache Tanner Osborne MD 02/19/2019 I60.7 Nontraumatic subarachnoid hemorrhage from Jose White PA-C unspecified intracranial artery 02/19/2019 R47.01 Aphasia Jose White PA-C 02/19/2019 R51 Headache Jose White PA-C 01/21/2019 I60.7 Nontraumatic subarachnoid hemorrhage from Jim Gifford MD unspecified intracranial artery 01/21/2019 R51 Headache Jim Gifford MD 01/21/2019 Z95.828 Presence of other vascular implants and Jim Gifford MD grafts 01/14/2019 R51 Headache EMILY SerranoC 01/14/2019 I60.7 Nontraumatic subarachnoid hemorrhage from JACQUIE Serrano-C unspecified intracranial artery 12/24/2018 I60.7 Nontraumatic subarachnoid [...] the circ sys 12/20/2018 R00.1 Bradycardia, unspecified EMILY RiveraC 12/20/2018 I67.848 Other cerebrovascular vasospasm and Guy [...] 12/08/2018 Z98.2 Presence of cerebrospinal fluid drainage JACQUIE Rivera- C device 12/08/2018 I60.7 Nontraumatic subarachnoid hemorrhage from HARJEET Fry unspecified intracranial artery 12/08/2018 Z98.2 Presence of cerebrospinal fluid drainage MOON Fry device 12/07/2018 I60.7 Nontraumatic subarachnoid hemorrhage from JACQUIE Bautista unsp intracran art 12/07/2018 G91.9 Hydrocephalus, unspecified JACQUIE Bautista 12/07/2018 Z98.2 Presence of cerebrospinal fluid drainage JACQUIE Bautista device 12/07/2018 Z95.828 Presence of other vascular implants and JACQUIE Bautista grafts 12/06/2018 I60.7 Nontraumatic subarachnoid hemorrhage from Hebert Reddy, RPA-C unsp intracran art 12/06/2018 G91.9 Hydrocephalus, unspecified Hebert Reddy, RPA-C 12/06/2018 Z98.2 Presence of cerebrospinal fluid drainage Hebert Reddy, RPA -C device 12/06/2018 Z95.828 Presence of other vascular implants and Hebert Reddy, RPA-C grafts 12/05/2018 I60.7 Nontraumatic subarachnoid hemorrhage from Sheyla Sanchez, PA unsp intracran art 12/05/2018 G91.9 Hydrocephalus, unspecified Sheyla Vowilliam, PA 12/05/2018 Z98.2 Presence of cerebrospinal fluid drainage Sheyla Vowilliam, PA device 12/05/2018 Z95.828 Presence of other vascular implants and Sheyla Daniel, PA grafts 12/04/2018 I60.7 Nontraumatic subarachnoid hemorrhage from Hebert Reddy, MOON-C unsp intracran art 12/04/2018 G91.9 Hydrocephalus, unspecified Hebert Reddy, RPA-C 12/04/2018 Z98.2 Presence of cerebrospinal fluid drainage Hebert Reddy, RPA -C device 12/04/2018 Z95.828 Presence of other vascular implants and Hebert Reddy, RPA-C grafts 12/03/2018 Z48.812 Encntr for surgical [...] Gifford MD uncomplicated Plan of Treatment Future Appointment(s):04/28/2019 10:00 am - Jim Gifford MD05/25/2019 2:40 pm - Jose White PA-C at [facility] [id number]/15/2020 - Jim Gifford MDI60.7 Nontraumatic subarachnoid hemorrhage from unspecified intracranial arteryNew Xrays:Angiogram Cerebral, Scheduled: 04/28/19Follow up:3 [id number] PkulyhwgX50.828 Presence of other vascular implants and grafts Functional Status Description No Information Available Mental Status Description No Information Available Referrals Refer to Reason for Referral Status Appt Date Jose White PA headache clinic Closed 01/14/2019 [facility] [address] [place] [address] [phone]
--- OUTSIDE RECORDS SUMMARY | 2019-05-27 09:27 | XMS REPORT | Continuity of Care Document ---
:1980 External Reference #:[id number] Demographics Address [address] [facility] [place] [place] [place] [address] Home Phone [phone] Mobile Phone [phone] Email Address Preferred Language en Marital Status Declined to Specify/Unknown Druze Affiliation Unknown Race White Ethnic Group Declined to Specify/Unknown Author Name Jim Gifford MD Address [address], [address] [place] [address] Care Team Providers Name Role Phone Meredith Isaac RPA-C Care Team Information Onion Farmer [phone] Rayna Conrad SENIOR JAVA UI DEVELOPER - Family Care Team Information Onion Farmer Problems Active Problems Provider Date Headache Jose [...] 1 cap by mouth AT 90caps R51 Josemirna White, 01/14/2019 - 300mg night for 1 week, FABIO 03/30/2019 Capsules increase by 300 mg a week until 300 mg tid Immunizations Description No Information Available Vital Signs Date Vital Result Comment 05/06/2019 3:12pm Height 65 inches 5'5" Weight 169.00 lb BMI (Body Mass Index) 28.1 kg/m2 BP Systolic 133 mmHg BP Diastolic 84 mmHg Heart Rate 57 /min Body Temperature 97.5 F Body Temperature 36.4 C 04/22/2019 2:20pm Height 65 inches 5'5" Weight 172.00 lb BMI (Body Mass Index) 28.6 kg/m2 BP Systolic 119 mmHg BP Diastolic 77 mmHg Heart Rate 77 /min Results Test Acquired Date Facility Test Result H/L Range Note BMP-Female 04/22/[address] [facility] Glucose 89 mg/ dL 74-106 [address] [place], [place] [id number] [phone] BUN 12 mg/dL 6-20 Creatinine 0.7 mg/dL 0.5-1.3 Sodium 137 mmol/L 136-145 Potassium 4.4 mmol/L 3.5-5.3 Chloride 103 mmol/L 98-107 Co2 25 mEq/L 20-31 Anion Gap 9 mmol/L 7-16 eGFR-female 92 mL/m/1.73m - eGFR-Aa female 112 mL/m/1.73m - 2 Calcium 9.7 mg/dL 8.9-10.5 Cbcadp 04/22/[address] [facility] WBC. 5.61 x10E3/uL 4.2-12.0 [address] [place], [place] [id number] [phone] RBC 4.03 x10E6/uL 3.9-5.4 HGB 11.7 g/dL Low 12.0-16.0 HCT 37.9 % 36-47 MCV 94.1 fL 80-98 MCH 29.1 pg 27-33 MCHC 30.9 g/dL Low 32-36 RDW 14.0 % 11.2-15.2 PLT 369 x10E3/uL 135-420 MPV 8.2 fL 7.0-12.3 % Mary 59.8 % 41.0-80.0 %Lym 31.3 % 10.0-45.2 %Coleman 7.1 % 2.0-13.0 %Eos 1.2 % 0.0-8.0 %Baso 0.5 % 0.0-3.0 Neut 3.4 x10E3/uL 2.0-8.1 Lymp 1.8 x10E3/uL 0.6-3.1 Coleman 0.4 x10E3/uL 0.0-1.0 Eos 0.1 x10E3/uL 0.0-0.6 Baso 0.0 x10E3/uL 0.0-0.2 PT-Inr 04/22/[address] [facility] PT 11.4 Sec 10.6 -13.0 [address] [place], [place] [id number] [phone] Inr 1.0 - 3 Laboratory test 04/22/[address] [facility] PTT 26.2 Sec 25.6-35.6 finding [address] [place], [place] [address] [phone] Scattergram ok - Venipuncture DONE - Xray 02/19/2019 [facility] MRI Brain W/O Contrast [id number] [address] [place] [address] [phone] 1 [place] [employer] (ADA) Recommended Range is 65-99 [...] . Procedures Date Code Description Status 04/28/2019 61637 Moderate Sedation Services; Same Phys Intl 15 Mins; PT >= Completed 5 Years 04/28/2019 75201 3D Rend Intrepretation Req Image Postprocessing Completed Independent Work 04/28/2019 18202 Angiography Internal Corotid Of The Ipsil Intrac Completed Circulation 04/28/2019 17255 Cath Placement Angiography Of The Ipsilateral Intracarnial Completed 03/25/2019 79364 EEG Recording Awake & Drowsy Completed 12/17/2018 40946 Catheter Placement Arterial System Init 3RD Ord Completed Thoracic/Brachioc 12/17/2018 79204 Transcatheter Permanent Occlusion/Embolization Completed Percutaneous GR[employer]SR[employer]OTS ORGANIZER 12/17/2018 68453 Endovascular Intracranial Prolonged Admin Of Pharmacologic Completed Agents 12/17/2018 70577 Endovascular Intracranial Prolonged Admin Of Pharmacologic Completed Agents 12/17/2018 37278 Transcatheter Therapy Embolization Any Method Completed 12/17/2018 02036 Moderate Sedation Services; Same Phys Intl 15 Mins; PT >= Completed 5 Years 12/17/2018 33620 Moderate Sedation Services; Same Phys Intl 15 Mins; PT >= Completed 5 Years 12/02/2018 50082 Moderate Sedation Services; Same Phys Intl 15 Mins; PT >= Completed 5 Years 12/02/2018 85081 Angiogram For Transcatheter Therapy Embolization Or Completed Infusion 12/02/2018 39768 Angiogram For Transcatheter Therapy Embolization Or Completed Infusion 12/02/2018 30875 Transcatheter Therapy Embolization Any Method Completed 12/02/2018 72411 Transcatheter Permanent Occlusion/Embolization Completed Percutaneous GR[employer]SROOTS ORGANIZER 12/02/2018 68565 Catheter Placement Arterial System Init 3RD Ord Completed Thoracic/Brachioc 12/01/2018 26193 Twist Drill Hole For Implanting Ventricular Cath/Pressure Completed Rec Dev Medical Devices Description No Information Available Encounters Type Date Location Provider Dx Diagnosis Office Visit 05/06/2019 [facility] Neurosurgery Jim Gifford MD I60.7 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 R51 Headache Z95.828 Presence of other vascular implants and grafts Office Visit 04/22/2019 2:40p [facility] Neurosurgery Jim Gifford I60Angel Nontraumatic MD subarachnoid hemorrhage from unsp intracran art R51 Headache Z95.828 Presence of other vascular implants and grafts Office Visit 02/19/2019 2:40p [facility] Neurology Jose White I60.7 Nontraumatic PA-C subarachnoid hemorrhage from unsp intracran art R47.01 Aphasia R51 Headache Office Visit 01/21/2019 3:00p [facility] Neurosurgery Jim Gifford I60Angel Nontraumatic MD subarachnoid hemorrhage from unsp intracran art R51 Headache Z95.828 Presence of other vascular implants and grafts Office Visit 01/14/2019 10:20a [facility] Neurology JACQUIE Serrano-C R51 Headache I60.7 Nontraumatic subarachnoid hemorrhage from unsp intracran art Office Visit 12/24/2018 6:04p [facility] Neurosurgery Jim Gifford I60.7 Nontraumatic MD subarachnoid hemorrhage from unsp intracran art Z95.828 Presence of other vascular implants and grafts Office Visit 12/23/2018 6:04p [facility] Neurosurgery Jim Gifford I60.7 Nontraumatic MD subarachnoid hemorrhage from unsp intracran art Z95.828 Presence of other vascular implants and grafts Office Visit 12/22/2018 6:04p [facility] Neurosurgery Jim Gifford I60.7 Nontraumatic MD subarachnoid hemorrhage from unsp intracran art I67.848 Other cerebrovascular vasospasm and vasoconstriction Office Visit 12/21/2018 6:04p [facility] Neurosurgery Reilly Kilgore, Z48.812 Encntr for MD surgical aftcr following surgery on the circ sys I60.7 Nontraumatic subarachnoid hemorrhage from unsp intracran art I67.848 Other cerebrovascular vasospasm and vasoconstriction Office Visit 12/20/2018 6:04p [facility] Neurosurgery Guy Jimenes, Z48.812 Encntr for PA-C surgical aftcr following surgery on the circ sys R00.1 Bradycardia, unspecified I67.848 Other cerebrovascular vasospasm and vasoconstriction I60.7 Nontraumatic subarachnoid hemorrhage from unsp intracran art Office Visit 12/19/2018 6:04p [facility] Neurosurgery Minnie Hathaway Z48.812 Encntr for PA surgical aftcr following surgery on the circ sys R53.1 Weakness R00.1 Bradycardia, unspecified R40.0 Somnolence Office Visit 12/18/2018 6:04p [facility] Neurosurgery Guy Jimenes, Z48.812 Encntr for PA-C surgical aftcr following surgery on the circ sys I60.7 Nontraumatic subarachnoid hemorrhage from unsp intracran art I67.848 Other cerebrovascular vasospasm and vasoconstriction Office Visit 12/17/2018 [facility] Neurosurgery Reilly Kilgore I60.7 Nontraumatic 6:04p MD subarachnoid hemorrhage from unsp intracran art T82.528A Displacmnt of cardiac and vascular devices and implnt, init I67.848 Other cerebrovascular vasospasm and vasoconstriction Office Visit 12/16/2018 6:04p [facility] Neurosurgery Jim Gifford I60.7 Nontraumatic MD subarachnoid hemorrhage from unsp intracran art I67.848 Other cerebrovascular vasospasm and vasoconstriction Office Visit 12/15/2018 6:02p [facility] Neurosurgery Jim Gifford I60.7 Nontraumatic MD subarachnoid hemorrhage from unsp intracran art I67.848 Other cerebrovascular vasospasm and vasoconstriction 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 Office Visit 12/14/2018 [facility] Neurosurgery Reilly Kilgore I60.7 Nontraumatic 6:02p MD subarachnoid hemorrhage from unsp intracran art 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 Office Visit 12/13/2018 [facility] Neurosurgery Reilly Kligore I60.7 Nontraumatic 6:02p MD subarachnoid hemorrhage from unsp intracran art I67.848 Other cerebrovascular vasospasm and vasoconstriction 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 Z95.828 Presence of other vascular implants and grafts Office Visit 12/12/2018 6:02p [facility] Neurosurgery Jim Gifford I60.7 Nontraumatic MD subarachnoid hemorrhage from unsp intracran art I67.848 Other cerebrovascular vasospasm and vasoconstriction 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 Z95.828 Presence of other vascular implants and grafts Office Visit 12/11/2018 6:03p [facility] Neurosurgery Jim Gifford MD R35.8 Other polyuria I60.7 Nontraumatic subarachnoid hemorrhage from unsp intracran art 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 Z95.828 Presence of other vascular implants and grafts Office Visit 12/10/2018 6:03p [facility] Neurosurgery Jim Gifford I60.7 Nontraumatic MD subarachnoid hemorrhage from unsp intracran art R35.8 Other polyuria R51 Headache 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 Office Visit 12/09/2018 6:02p [facility] Neurosurgery Jmi Gifford I60.7 Nontraumatic MD subarachnoid hemorrhage from unsp intracran art I67.848 Other cerebrovascular vasospasm and vasoconstriction 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 Z95.828 Presence of other vascular implants and grafts Office Visit 12/08/2018 6:02p [facility] Neurosurgery Hebert Reddy, I60.7 Nontraumatic RPA-C subarachnoid hemorrhage from unsp intracran art 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 Office Visit 12/08/2018 6:02p [facility] Neurosurgery Guy Yudy, I60.7 Nontraumatic PA-C subarachnoid hemorrhage from unsp intracran art 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 Office Visit 12/07/2018 6:04p [facility] Neurosurgery JACQUIE Bautista I60.7 Nontraumatic subarachnoid hemorrhage from unsp intracran art G91.9 Hydrocephalus, unspecified 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 Z95.828 Presence of other vascular implants and grafts Office Visit 12/06/2018 6:02p [facility] Neurosurgery Hebert Reddy, I60.7 Nontraumatic RPA-C subarachnoid hemorrhage from unsp intracran art G91.9 Hydrocephalus, unspecified 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 Z95.828 Presence of other vascular implants and grafts Office Visit 12/05/2018 6:02p [facility] Neurosurgery Sheyla Daniel, I60.7 Nontraumatic PA subarachnoid hemorrhage from unsp intracran art G91.9 Hydrocephalus, unspecified 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 Z95.828 Presence of other vascular implants and grafts Office Visit 12/04/2018 6:02p [facility] Neurosurgery Hebert Reddy, I60.7 Nontraumatic RPA-C subarachnoid hemorrhage from unsp intracran art G91.9 Hydrocephalus, unspecified 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 Z95.828 Presence of other vascular implants and grafts Office Visit 12/03/2018 6:02p [facility] Neurosurgery Jim Gifford, Z48.812 Encntr for MD surgical aftcr following surgery on the circ sys I60.7 Nontraumatic subarachnoid hemorrhage from unsp intracran art G91.9 Hydrocephalus, unspecified Office Visit 12/02/2018 6:02p [facility] Neurosurgery Jim Gifford I60.7 Nontraumatic MD subarachnoid hemorrhage from unsp intracran art G91.9 Hydrocephalus, unspecified Office Visit 12/01/2018 6:03p [facility] Neurosurgery Jim Gifford I60.7 Nontraumatic MD subarachnoid hemorrhage from unsp intracran art G91.9 Hydrocephalus, unspecified I10 Essential (primary) hypertension F17.210 Nicotine dependence, cigarettes, uncomplicated Assessments Date Code Description Provider 05/06/2019 I60.7 Nontraumatic subarachnoid hemorrhage from Jim [...] PA-C unspecified intracranial artery 02/19/2019 R47.01 Aphasia EMILY SerranoC 02/19/2019 R51 Headache JACQUIE Serrano-C 01/21/2019 I60.7 Nontraumatic subarachnoid hemorrhage from Jim Gifford MD unspecified intracranial artery 01/21/2019 R51 Headache Jim Gifford MD 01/21/2019 Z95.828 Presence of other vascular implants and Jim Gifford MD grafts 01/14/2019 R51 Headache Jose White, PA-C 01/14/2019 I60.7 Nontraumatic subarachnoid hemorrhage from JACQUIE [...] the circ sys 12/20/2018 R00.1 Bradycardia, unspecified JACQUIE Rivera-C 12/20/2018 I67.848 Other cerebrovascular vasospasm and Guy [...] 12/04/2018 I60.7 Nontraumatic subarachnoid hemorrhage from Hebert Reddy MOON-C unsp intracran art 12/04/2018 G91.9 Hydrocephalus, unspecified Hebert Reddy MOON-C 12/04/2018 Z98.2 Presence of cerebrospinal fluid drainage Hebert Reddy MOON -C device 12/04/2018 Z95.828 Presence of other [...] Gifford MD uncomplicated Plan of Treatment Future Appointment(s):05/25/2019 2:40 pm - Jose White PA-C at [facility] Ipjoaseaq88/29/2020 - Jim Gifford MDI60.7 Nontraumatic subarachnoid hemorrhage from unspecified intracranial arteryFollow up:6 [id number] BpxcicmeF40.828 Presence of other vascular implants and grafts Functional Status Description No Information Available Mental Status Description No Information Available Referrals Refer to Reason for Referral Status Appt Date Jose White PA headache clinic Closed 01/14/2019 [facility] [address] [place] [address] [phone]
[2019-05-27 09:42] VITALS: BP 141/95
--- NOTE | 2019-05-27 10:05 | UC ---
Throat Pain/Nasal Evelio HPI - HPI Summary HPI Summary: sinus pain / pressure x 2 weeks pain is more on the right side of the face, nasal congestion , pnd , cough , no sore throat , denies any fever, no chills, no body aches - History of Current Complaint Chief Complaint: UCRespiratory Stated Complaint: HEADACHE CONGESTION COUGH Time Seen by Provider: 05/27/19 09:42 Hx Obtained From: Patient Hx Last Menstrual Period: 05/20/19 ?: No Onset/Duration: Gradual Onset, Lasting Weeks - 2, Still Present Severity: Moderate Pain Intensity: 7 Cough: Nonproductive Associated Signs & Symptoms: Positive: Sinus Discomfort, Nasal Discharge. Negative: Hoarseness, Fever - Allergies/Home Medications Allergies/Adverse Reactions: Allergies Allergy/AdvReac Type Severity Reaction Status Date / Time diphenhydramine Allergy Severe joint Verified 05/27/19 09:42 [From Benadryl] pain, swelling , difficulty breathing sulfamethoxazole Allergy Unknown Joint Pain Verified 05/27/19 09:42 [From Bactrim] trimethoprim [From Bactrim] Allergy Unknown Joint Pain Verified 05/27/19 09:42 Home Medications: Home Medications ALPRAZolam TAB* [Xanax TAB*] 0.25 mg PO BID PRN 05/27/19 [History Confirmed ] Aspirin [Aspir-Low] 81 mg PO DAILY 05/27/19 [History Confirmed 05/27/19] Butalb/Acetamin/Caff TAB* [Fioricet TAB*] 1 tab PO Q4H PRN 05/27/19 [History Confirmed 05/27/19] FLUoxetine CAP* [PROzac CAP*] 40 mg PO DAILY 05/27/19 [History Confirmed ] Gabapentin CAP(*) [Neurontin 300 CAP(*)] 600 mg PO QAM 05/27/19 [History Confirmed 05/27/19] Gabapentin CAP(*) [Neurontin 300 CAP(*)] 900 mg PO BEDTIME 05/27/19 [History Confirmed 05/27/19] Multivitamin [Multivitamins] 1 each PO DAILY 05/27/19 [History Confirmed ] Topiramate [Topamax] 25 mg PO QPM 05/27/19 [History Confirmed 05/27/19] PMH/Surg Hx/FS Hx/Imm Hx - Additional Past Medical History Additional PMH: IMPRESSION: DEGENERATIVE DISC DISEASE. Cardiovascular History: Hypertension - Surgical History Surgical History: Yes Surgery Procedure, Year, and Place: Back surgery 2013. Tubal - 2000; brain coil and stent 2018 - Family History Known Family History: Positive: Non-Contributory - Social History Alcohol Use: Daily Alcohol Amount: 2 Substance Use Type: Marijuana Substance Use Comment - Amount & Last Used: 05/25/19 Smoking Status (MU): Former Smoker Type: Cigarettes Amount Used/How Often: ONE TWICE A MONTH - Immunization History Vaccination Up to Date: Yes Review of Systems All Other Systems Reviewed And Are Negative: Yes Constitutional: Positive: Negative. Negative: Fever, Chills, Fatigue Skin: Positive: Negative Eyes: Positive: Negative ENT: Positive: Nasal Discharge, Sinus Congestion, Sinus Pain/Tenderness. Negative: Sore Throat Respiratory: Positive: Cough Is Patient Immunocompromised?: No Physical Exam Triage Information Reviewed: Yes Appearance: Well-Appearing, No Pain Distress, Well-Nourished Vital Signs: Initial Vital Signs Temp 98.6 F 05/27/19 09:30 Pulse 59 05/27/19 09:30 Resp 20 05/27/19 09:30 BP 141/95 05/27/19 09:30 Pulse Ox 100 05/27/19 09:30 Vital Signs Reviewed: Yes Eye Exam: Normal Eyes: Positive: Conjunctiva Clear ENT: Positive: Normal ENT inspection, Hearing grossly normal, Pharynx normal, Nasal congestion, Nasal drainage, TMs normal, Sinus tenderness. Negative: Pharyngeal erythema, TM bulging, TM dull, TM red Neck: Positive: Supple, Nontender, No Lymphadenopathy Respiratory: Positive: Chest non-tender, Lungs clear, Normal breath sounds Cardiovascular: Positive: RRR, No Murmur Throat Pain/Nasal Course/Dx - Course Course Of Treatment: hypertension : cont. current meds follow up with your pcp in 2 weeks - Differential Dx/Diagnosis Provider Diagnosis: Sinusitis, Hypertension Discharge ED - Sign-Out/Discharge Documenting (check all that apply): Patient Departure All imaging exams completed and their final reports reviewed: No Studies - Discharge Plan Condition: Stable Disposition: HOME Prescriptions: Amoxicillin/Clavulanate TAB* [Augmentin TAB 875*] 875 mg PO BID #20 tab Patient Education Materials: Sinusitis (ED) Referrals: Dionne Galo NP [Primary Care Provider] - - Billing Disposition and Condition Condition: STABLE Disposition: Home
[2019-05-27 10:11] LABS: Influenza A Molecular Negative (Negative); Influenza B Molecular Negative (Negative)
== END 2019-05-27 10:15 | disposition home or self-care (01) ==
LOC: UCCORT 09:18
DX: J32.9 Chronic sinusitis, unspecified (principal); I10 Essential (primary) hypertension; Z88.2 Allergy status to sulfonamides; Z88.8 Allergy status to other drugs, medicaments and biological substances; Z79.82 Long term (current) use of aspirin; Z87.891 Personal history of nicotine dependence
CPT/HCPCS: 99212; G0463